=== PATIENT | male | born 1995 | race Caucasian/White ===

== ENCOUNTER 2016-06-21 12:55 | Emergency (ER) | payer BC ==
[~2016-06-21] VITALS: Ht 195.6 cm; Wt 92.0 kg
[2016-06-21 13:06] VITALS: TEMP 37.2; Ht 195.6 cm; Wt 92.0 kg
[2016-06-21] MEDS ORDERED: IBUP-103 PO (14:07)
[2016-06-21] MEDS ORDERED: SODIUM CHLORIDE 0.9% 1000ML 1,000 ML IV STA (14:09)
--- NOTE | 2016-06-21 14:18 | EMERGENCY ROOM VISIT NOTE ---
History Report prepared by Valeria: Kayla Cartwright Under the Supervision of: Dr. Kimberly Altamirano M.D. First contact with patient: 13:25 Chief Complaint: SYNCOPE Stated Complaint: HEADACHE, DIZZINESS, FAINTING Nursing Triage Summary: pt has had cold s/s last few days took Nyquil last pm pt awoke at 0600 and had syncopal episode passing out hitting head and nose pt laid back down dizziness continues History of Present Illness The patient is a 20 year old male who presents to the Emergency Room with complaints of an episode of syncope that occurred this morning. The patient notes that he passed out while he was urinating this morning and hit his head on the sink on his way down to the ground. He woke up on the ground with pain to the back of his head and his nose. He did not eat prior to the syncopal episode but he has eaten since then. When he got up to make breakfast this morning, he felt dizzy and had to lay down. He did not pass out a second time. He took Advil 3 hours ago which has improved his symptoms some, although he does have a mild headache still. He also complains of some neck pain. He notes that he has had some cold-like symptoms for the past few days and has not feeling well in general. He has been drinking plenty of water. Denies alcohol use last night. He has been using NyQuil and DayQuil. Denies chest pain, shortness of breath, diarrhea, vomiting, or other complaints. Source of History: patient Onset: this morning Position: other (global) Quality: other (syncope) Timing: resolved, other (episode) Associated Symptoms: + LOC, + headache, + neck pain, No SOB, No chest pain, No diarrhea, No vomiting Review of Systems See HPI for pertinent positives & negatives. A total of 10 systems reviewed and were otherwise negative. Past Medical & Surgical Medical Problems: (1) No Known Active Medical Problems Family History No pertinent family history stated. Social History Smoking Status: Never Smoker Marital Status: single Occupation Status: [employer] student Current/Historical Medications Scheduled Amoxicillin & Pot Clavulanate (Augmentin 875-125 mg), 875 MG PO BID Ibuprofen Tab (Advil), 400 MG PO Q6H Allergies Coded Allergies: No Known Allergies (Unverified , 06/21/16) Physical Exam Vital Signs Date Time Temp Pulse Resp B/P Pulse Ox O2 Delivery O2 Flow Rate FiO2 06/21/16 16:50 58 18 116/65 97 Room Air 06/21/16 15:16 18 100 Room Air 06/21/16 15:16 58 129/69 65 130/82 62 148/76 06/21/16 14:33 56 06/21/16 13:06 37.2 97 20 134/76 98 Room Air Physical Exam Vital signs reviewed. General: Well-appearing 20 year old male, in no significant distress. HEENT: No scleral icterus, PERRLA. Atraumatic. TMs are clear bilaterally. Nontender to palpations over the maxillary sinuses. Neck: Mild tenderness to the right cervical paraspinous muscles. No step-off or deformity. Cardiovascular: Regular rate and rhythm, no extra sounds. Pulmonary: Clear to auscultation bilaterally, normal work of breathing. Abdomen: Soft, nontender, nondistended, positive bowel sounds. Musculoskeletal: Atraumatic, no peripheral edema. Neurologic: Patient awake alert and oriented x 3, full strength in all 4 extremities. Cranial nerves 2 through 12 grossly intact. No meningeal signs. Skin: Warm, dry, no rash Medical Decision & Procedures ER Provider Diagnostic Interpretation: Radiology results as stated below per my review and radiologist interpretation: HEAD CT NONCONTRAST CT DOSE: 537.48 mGy.cm HISTORY: Mental status change. Headache. CHI, syncope TECHNIQUE: Multiaxial CT images of the head were performed without the use of intravenous contrast. Comparison: None. Findings: Moderate mucosal thickening in the ethmoid and to lesser extent maxillary sinuses. The calvarium and skull base are intact. The ventricles and sulci are within normal limits. There is no mass, hematoma, midline shift, or acute infarct. Impression: No acute intracranial abnormality. Moderate mucosal thickening of the ethmoid and maxillary sinuses Electronically signed by: Ted Bowers M.D. 06/21/2016 2:50 PM Dictated Date/Time: 06/21/2016 2:49 PM CHEST 2 VIEWS ROUTINE HISTORY: Headache. Dizziness. syncope COMPARISON: None. FINDINGS: The lungs are clear. Cardiac silhouette is normal in size. No pleural effusions. No pneumothorax. IMPRESSION: No acute process. Electronically signed by: Mason Herrera M.D. 06/21/2016 3:24 PM Dictated Date/Time: 06/21/2016 3:21 PM CERVICAL SPINE 5 VIEWS HISTORY: neck pain after fall COMPARISON: None. FINDINGS: The cervical spine is visualized from C1 through the superior endplate of T1. There is no fracture. No subluxation. Disc spaces are preserved. Prevertebral soft tissues and the atlantodens interval are intact. IMPRESSION: No fracture or subluxation within the cervical spine. Electronically signed by: Mason Herrera M.D. 06/21/2016 3:17 PM Dictated Date/Time: 06/21/2016 3:16 PM Laboratory Results 06/21/16 14:25 Red Blood Count 4.92, Mean Corpuscular Volume 88.8, Mean Corpuscular Hemoglobin 31.5, Mean Corpuscular Hemoglobin Concent 35.5, Mean Platelet Volume 9.5, Neutrophils (%) (Auto) 65.8, Lymphocytes (%) (Auto) 16.8, Monocytes (%) (Auto) 16.9, Eosinophils (%) (Auto) 0.1, Basophils (%) (Auto) 0.2, Neutrophils # (Auto ) 5.97, Lymphocytes # (Auto) 1.53, Monocytes # (Auto) 1.54, Eosinophils # (Auto ) 0.01, Basophils # (Auto) 0.02 06/21/16 14:25 Test 06/21/16 14:25 06/21/16 14:33 06/21/16 15:30 White Blood Count 9.09 K/uL (4.8-10.8) Red Blood Count 4.92 M/uL (4.7-6.1) Hemoglobin 15.5 g/dL (14.0-18.0) Hematocrit 43.7 % (42-52) Mean Corpuscular Volume 88.8 fL (80-100) Mean Corpuscular Hemoglobin 31.5 pg (25-34) Mean Corpuscular Hemoglobin Concent 35.5 g/dl (32-36) Platelet Count 242 K/uL (130-400) Mean Platelet Volume 9.5 fL (7.4-10.4) Neutrophils (%) (Auto) 65.8 % Lymphocytes (%) (Auto) 16.8 % Monocytes (%) (Auto) 16.9 % Eosinophils (%) (Auto) 0.1 % Basophils (%) (Auto) 0.2 % Neutrophils # (Auto) 5.97 K/uL (1.4-6.5) Lymphocytes # (Auto) 1.53 K/uL (1.2-3.4) Monocytes # (Auto) 1.54 K/uL (0.11-0.59) Eosinophils # (Auto) 0.01 K/uL (0-0.5) Basophils # (Auto) 0.02 K/uL (0-0.2) RDW Standard Deviation 40.4 fL (36.4-46.3) RDW Coefficient of Variation 12.6 % (11.5-14.5) Immature Granulocyte % (Auto) 0.2 % Immature Granulocyte # (Auto) 0.02 K/uL (0.00-0.02) Anion Gap 9.0 mmol/L (3-11) Est Creatinine Clear Calc Drug Dose 124.8 ml/min Estimated GFR () 101.0 Estimated GFR (Non- 87.1 BUN/Creatinine Ratio 11.0 (10-20) Calcium Level 9.2 mg/dl (8.5-10.1) Magnesium Level 2.4 mg/dl (1.8-2.4) Total Bilirubin 0.5 mg/dl (0.2-1) Direct Bilirubin 0.1 mg/dl (0-0.2) Aspartate Amino Transf (AST/SGOT) 20 U/L (15-37) Alanine Aminotransferase (ALT/SGPT) 31 U/L (12-78) Alkaline Phosphatase 127 U/L (45-117) Total Protein 8.1 gm/dl (6.4-8.2) Albumin 4.1 gm/dl (3.4-5.0) Bedside Troponin I 0.000 ng/ml (0-0.045) Urine Color DK YELLOW Urine Appearance CLEAR (CLEAR) Urine pH 6.5 (4.5-7.5) Urine Specific [place] 1.030 (1.000-1.030) Urine Protein TRACE (NEG) Urine Glucose (UA) NEG (NEG) Urine Ketones NEG (NEG) Urine Occult Blood NEG (NEG) Urine Nitrite NEG (NEG) Urine Bilirubin NEG (NEG) Urine Urobilinogen NEG (NEG) Urine Leukocyte Esterase NEG (NEG) Urine WBC (Auto) 1-5 /hpf (0-5) Urine RBC (Auto) 0-4 /hpf (0-4) Urine Hyaline Casts (Auto) 1-5 /lpf (0-5) Urine Epithelial Cells (Auto) 10-20 /lpf (0-5) Urine Bacteria (Auto) NEG (NEG) Laboratory results per my review. Medications Administered Medications (Trade) Dose Ordered Sig/Sonja Route Start Time Stop Time Status Last Admin Dose Admin Sodium Chloride (Nss 1000ml) 1,000 ml @ 999 mls/hr Q1H1M STAT IV 06/21/16 14:09 06/21/16 15:09 DC 06/21/16 14:09 999 MLS/HR ECG Indication: syncope Rate (beats per minute): 53 Rhythm: sinus bradycardia Findings: no acute ischemic change, no ectopy, other (right axis deviation, repolarization abnormality) ED Course 1408: The patient was evaluated in room C2. A complete history and physical examination was performed. Ordered NSS 1000 ml @ 999 mls/hr IV. 1644: Upon reevaluation, the patient was resting comfortably and hemodynamically stable. I discussed findings with the patient. He verbalized agreement of the treatment plan. The patient was discharged home. Medical Decision Differential diagnosis: Etiologies such as benign positional vertigo, dehydration, hypovolemia, anemia, tumor, infection, hypoglycemia, electrolyte abnormalities, cardiac sources, intracerebral event, toxicologic, neurologic, as well as others were entertained. This patient was evaluated and appeared to be in no significant distress. IV access was obtained and laboratory work was drawn. Patient was placed on school lunch monitor and found to be in a normal sinus rhythm. He was hydrated with normal saline solution. EKG and laboratory work revealed no significant abnormalities. CT scan of the head reveals no evidence of acute intracranial abnormality however there is evidence of maxillary and ethmoidal sinusitis. Patient likely had a vasovagal episode. The patient is not currently orthostatic. Patient was discharged to follow-up with [facility] or his primary care physician for reevaluation. Impression Primary Impression: Syncope Additional Impressions: Sinusitis, acute maxillary Sinusitis, acute ethmoidal Scribe Attestation The scribe's documentation has been prepared under my direction and personally reviewed by me in its entirety. I confirm that the note above accurately reflects all work, treatment, procedures, and medical decision making performed by me. Departure Information Dispostion Home / Self-Care Prescriptions Amoxicillin & Pot Clavulanate (Augmentin 875-125 mg) 1 Tab Tab 875 MG PO BID for 10 Days, #20 TAB Prov: Kimberly Altamirano M.D. 06/21/16 Referrals [facility] Patient Instructions My [facility] Additional Instructions Diagnosis: Acute sinusitis, syncope Drink plenty of clear fluids. Augmentin 875 mg twice daily for 10 days. Tylenol 650 mg every 6 hours as needed for pain or fever. Follow-up with your physician or [facility] this week for reevaluation. Return to the ER for worsening of symptoms or any medical concerns. Problem Qualifiers Primary Impression: Syncope Syncope type: vasovagal syncope Qualified Codes: R55 - Syncope and collapse
[2016-06-21 14:36] LABS: BASO % 0.2 %; BASO ABS # 0.02 K/uL (0-0.2); COMPLETE YES; EOS % 0.1 %; HEMATOCRIT 43.7 % (42-52); IG% 0.2 %; LYMPH % 16.8 %; LYMPH ABS # 1.53 K/uL (1.2-3.4); MEAN CELL VOLUME 88.8 fL (80-100); MEAN CORPUSCULAR HEMOGLOBIN 31.5 pg (25-34); MEAN CORPUSCULAR HGB CONC 35.5 g/dl (32-36); MEAN PLATELET VOLUME 9.5 fL (7.4-10.4); MONO % 16.9 %; NEUT % 65.8 %; PLATELET COUNT 242 K/uL (130-400); RED BLOOD COUNT 4.92 M/uL (4.7-6.1); WHITE BLOOD COUNT 9.09 K/uL (4.8-10.8)
--- NOTE | 2016-06-21 14:52 | DIAGNOSTIC IMAGING REPORT ---
HEAD CT NONCONTRAST CT DOSE: 537.48 mGy.cm HISTORY: Mental status change. Headache. CHI, syncope TECHNIQUE: Multiaxial CT images of the head were performed without the use of intravenous contrast. Comparison: None. Findings: Moderate mucosal thickening in the ethmoid and to lesser extent maxillary sinuses. The calvarium and skull base are intact. The ventricles and sulci are within normal limits. There is no mass, hematoma, midline shift, or acute infarct. Impression: No acute intracranial abnormality. Moderate mucosal thickening of the ethmoid and maxillary sinuses Electronically signed by: Ted Bowers M.D. 06/21/2016 2:50 PM Dictated Date/Time: 06/21/2016 2:49 PM
[2016-06-21 15:03] LABS: CALCIUM 9.2 mg/dl (8.5-10.1); CREATININE 1.2 mg/dl (0.60-1.40); MAGNESIUM 2.4 mg/dl (1.8-2.4); POTASSIUM 4.2 mmol/L (3.5-5.1)
--- NOTE | 2016-06-21 15:19 | DIAGNOSTIC IMAGING REPORT ---
CERVICAL SPINE 5 VIEWS HISTORY: neck pain after fall COMPARISON: None. FINDINGS: The cervical spine is visualized from C1 through the superior endplate of T1. There is no fracture. No subluxation. Disc spaces are preserved. Prevertebral soft tissues and the atlantodens interval are intact. IMPRESSION: No fracture or subluxation within the cervical spine. Electronically signed by: Mason Herrera M.D. 06/21/2016 3:17 PM Dictated Date/Time: 06/21/2016 3:16 PM
--- NOTE | 2016-06-21 15:25 | DIAGNOSTIC IMAGING REPORT ---
CHEST 2 VIEWS ROUTINE HISTORY: Headache. Dizziness. syncope COMPARISON: None. FINDINGS: The lungs are clear. Cardiac silhouette is normal in size. No pleural effusions. No pneumothorax. IMPRESSION: No acute process. Electronically signed by: Mason Herrera M.D. 06/21/2016 3:24 PM Dictated Date/Time: 06/21/2016 3:21 PM
[2016-06-21 15:41] LABS: URINE APPEARANCE CLEAR (CLEAR); URINE BILIRUBIN NEG (NEG); URINE COLOR DK YELLOW; URINE NITRITE NEG (NEG); URINE PH 6.5 (4.5-7.5); UROBILINOGEN NEG (NEG); ZZUR CULT IF INDIC CLEAN CATCH NO
[2016-06-21 15:51] LABS: MANUAL MICROSCOPIC REQUIRED? NO; REVIEW REQ? NO
[2016-06-21] MEDS ORDERED: AMOX875T PO (16:28)
[2016-06-21 16:50] VITALS: BP 116/65; PULSE 58; O2SAT 97
== END 2016-06-21 17:20 | disposition home or self-care (01) ==
LOC: C.EDB 12:58 → C.EDC 17:20
DX: R55 Syncope and collapse (principal); J01.00 Acute maxillary sinusitis, unspecified; J01.20 Acute ethmoidal sinusitis, unspecified; R00.1 Bradycardia, unspecified